=== PATIENT | female | born 1965 | race Asian ===

== ENCOUNTER 2018-02-09 17:39 | Emergency (ER) | payer OTHER ==
[~2018-02-09] VITALS: Ht 167.6 cm; Wt 68.0 kg
[2018-02-09 18:25] LABS: PLATELET COUNT 328 K/uL (152-353)
[2018-02-09 19:19] VITALS: BP 144/79; TEMP 98.6
== END 2018-02-09 19:19 | disposition home or self-care (01) ==
LOC: ED 17:39
PROVIDERS: Emergency Medicine
DX: J40 Bronchitis, not specified as acute or chronic (principal); J06.9 Acute upper respiratory infection, unspecified
CPT/HCPCS: 80053; 85027; 87502; 87651; 94664; 96372; 99283; J0696; J2930